=== PATIENT | female | born 1985 ===

== ENCOUNTER 2018-03-12 11:14 | Outpatient (CLI) | payer OTHER | END 2018-03-12 11:16 | disposition home or self-care (01) | LOC: SONOGRAMA 11:14 | DX: N83.291 Other ovarian cyst, right side (principal); R97.1 Elevated cancer antigen 125 [CA 125] ==

== ENCOUNTER 2018-03-12 12:20 | Outpatient (CLI) | payer OTHER | END 2018-03-12 12:31 | disposition home or self-care (01) | LOC: LAB 12:20 | DX: R97.1 Elevated cancer antigen 125 [CA 125] (principal); R10.2 Pelvic and perineal pain; N83.209 Unspecified ovarian cyst, unspecified side ==

== ENCOUNTER 2019-07-16 08:09 | Outpatient (CLI) | payer OTHER | END 2019-07-16 08:23 | disposition home or self-care (01) | LOC: NUCLEAR 08:09 | PROVIDERS: ATTEND Family Medicine | DX: I87.2 Venous insufficiency (chronic) (peripheral) (principal) ==

== ENCOUNTER → 2019-08-16 08:03 | Outpatient (CLI) | payer OTHER | END | disposition home or self-care (01) | LOC: LAB 08:03 | PROVIDERS: ATTEND Internal Medicine Hematology & Oncology | DX: D50.8 Other iron deficiency anemias (principal); I10 Essential (primary) hypertension; D68.8 Other specified coagulation defects; D68.62 Lupus anticoagulant syndrome; E56.1 Deficiency of vitamin K; D68.0 Von Willebrand disease; I73.89 Other specified peripheral vascular diseases ==

== ENCOUNTER 2020-06-23 07:46 | Outpatient (CLI) | payer OTHER | END 2020-06-23 07:58 | disposition home or self-care (01) | LOC: MRI 07:46 | PROVIDERS: ATTEND Anesthesiology | DX: M51.36 Other intervertebral disc degeneration, lumbar region (principal) | CPT/HCPCS: 72149 ==

== ENCOUNTER → 2021-09-09 | Emergency (ER) | payer OTHER | END | disposition home or self-care (01) | LOC: ER 17:54 | DX: H66.92 Otitis media, unspecified, left ear (principal); D68.0 Von Willebrand disease ==

== ENCOUNTER 2021-09-13 15:32 | Inpatient (IN) | payer OTHER ==
[~2021-09-13] VITALS: Ht 165.1 cm; Wt 79.4 kg
== END 2021-09-18 00:31 | disposition home or self-care (01) | DRG 389 ==
LOC: ER 15:32 → MEDI 09-14 03:43
PROVIDERS: ADMIT Internal Medicine; ATTEND Internal Medicine
DX: K56.690 Other partial intestinal obstruction (principal); K90.49 Malabsorption due to intolerance, not elsewhere classified; E86.0 Dehydration; K52.89 Other specified noninfective gastroenteritis and colitis; R63.0 Anorexia; Z20.822 Contact with and (suspected) exposure to COVID-19

== ENCOUNTER 2021-09-22 06:50 | Outpatient (CLI) | payer OTHER | END 2021-09-22 07:02 | disposition home or self-care (01) | LOC: LAB 06:50 | DX: R20.0 Anesthesia of skin (principal); R51.9 Headache, unspecified; M51.37 Other intervertebral disc degeneration, lumbosacral region; M54.2 Cervicalgia ==

== ENCOUNTER 2021-09-22 09:38 | Outpatient (CLI) | payer OTHER | END 2021-09-22 09:52 | disposition home or self-care (01) | LOC: MRI 09:38 | PROVIDERS: ATTEND Psychiatry & Neurology Neurology | DX: R20.0 Anesthesia of skin (principal); M54.2 Cervicalgia | CPT/HCPCS: 72156 ==

== ENCOUNTER 2021-09-29 07:32 | Outpatient (CLI) | payer OTHER | END 2021-09-29 07:48 | disposition home or self-care (01) | LOC: TOM 07:32 | DX: K52.1 Toxic gastroenteritis and colitis (principal) ==

== ENCOUNTER 2021-10-13 07:46 | Outpatient (CLI) | payer OTHER | END 2021-10-13 07:47 | disposition home or self-care (01) | LOC: LAB 07:46 | DX: D68.0 Von Willebrand disease (principal) ==

== ENCOUNTER 2021-10-14 07:39 | Outpatient (CLI) | payer OTHER | END 2021-10-14 16:03 | disposition home or self-care (01) | LOC: MRI 07:39 | DX: G35 Multiple sclerosis (principal) | CPT/HCPCS: 70553 ==

== ENCOUNTER 2021-10-21 10:33 | Outpatient (CLI) | payer OTHER | END 2021-10-21 10:34 | disposition home or self-care (01) | LOC: LAB 10:33 | PROVIDERS: ATTEND Internal Medicine Hematology & Oncology | DX: D68.0 Von Willebrand disease (principal); D50.0 Iron deficiency anemia secondary to blood loss (chronic) ==

== ENCOUNTER 2022-08-20 08:01 | Outpatient (CLI) | payer OTHER | END 2022-08-20 08:02 | disposition home or self-care (01) | LOC: LAB 08:01 | PROVIDERS: ATTEND Internal Medicine Hematology & Oncology | DX: D68.00 Von Willebrand disease, unspecified (principal); D50.0 Iron deficiency anemia secondary to blood loss (chronic) ==